=== PATIENT | male | born 1950 ===

== ENCOUNTER 2018-02-02 07:00 | Day surgery (SDC) | payer OTHER ==
[~2018-02-02 07:00] MED LIST: Buffered Lidocaine 0.9% SYRIN* 5 ML/SYR SYRINGE INTRADERM ONE
[2018-02-02] MEDS ORDERED: Bupivacaine 0.25% SDV* 30 ML ONE (07:02)
[2018-02-02] MEDS ORDERED: ceFAZolin 2 GM PREMIX (*) 2 GM/50 ML BAG IVPB ONE (07:30)
[2018-02-02] MEDS ORDERED: Acetaminophen TAB* 325 MG PO PRN (07:54)
[2018-02-02] MEDS ORDERED: PROCHLORPERAZINE INJ 5 MG/ML 2 ML VIAL IV PRN (07:54)
[2018-02-02] MEDS ORDERED: Ondansetron INJ* 2 MG/ML VIAL IV PRN (07:54)
[2018-02-02] MEDS ORDERED: HYDROcodone/ACETAMIN 5-325 MG* 1 TAB PO PRN (07:54)
[2018-02-02] MEDS ORDERED: Naloxone* 0.4 MG/ML 1 ML VIAL IV PRN (07:54)
[2018-02-02] MEDS ORDERED: fentaNYL* 50 MCG/ML 2 ML VIAL (100 MCG VIAL) ONE (07:56)
[2018-02-02] MEDS ORDERED: Midazolam* 1 MG/ML 2 ML VIAL (2 MG) ONE ×2 (07:56→08:32)
[2018-02-02] MEDS ORDERED: Lidocaine 2% PF * 5 ML VIAL ONE (08:34)
[2018-02-02] MEDS ORDERED: Propofol* 10 MG/ML 20 ML BTL IV PUSH ONE (08:34)
[2018-02-02] MEDS ORDERED: Ketorolac INJ* 30 MG/ML 1 ML VIAL ONE (08:34)
[2018-02-02 10:14] VITALS: BP 141/82
== END 2018-02-02 10:29 | disposition home or self-care (01) ==
LOC: OREAST 07:00
PROVIDERS: ATTEND Plastic Surgery
DX: M72.0 Palmar fascial fibromatosis [Dupuytren] (principal); Z87.891 Personal history of nicotine dependence; E78.5 Hyperlipidemia, unspecified
CPT/HCPCS: 88304; J0690; J1885; J2250; J2704; J3010